=== PATIENT | male | born 1960 | race Hispanic/Latino ===

== ENCOUNTER 2017-11-18 09:30 | Day surgery (SDC) | payer BC ==
[2017-11-16 10:50] VITALS: BMI 31.3
[2017-11-18] MEDS ORDERED: Lidocaine 2% Inj (20ml) ONE (10:21)
[2017-11-18] MEDS ORDERED: Iodixanol 320 MG/ML 200 ML BOTTLE IV ONE (10:21)
[2017-11-18] MEDS ORDERED: Midazolam 2 MG/2 ML VIAL ONE ×2 (12:05→12:21)
[2017-11-18] MEDS ORDERED: Iohexol 350mgl/ml 50 ML ONE (12:31)
[2017-11-18] MEDS ORDERED: Sodium Chloride 0.9% 1,000 ML IV SCH (12:45)
[2017-11-18 13:14] VITALS: TEMP 98.1
[2017-11-18 14:53] VITALS: RESP 16; O2SAT 96
[2017-11-18 15:18] VITALS: BP 101/61; PULSE 85
--- NOTE | 2017-11-19 14:28 | CARDCATH ---
PROCEDURE DATE: 11/18/2017 CARDIAC CATHETERIZATION REPORT PROCEDURES: 1. Selective left and right coronary angiography. 2. Left ventriculography. 3. Right femoral arteriography. 4. Angio-Seal deployment. HISTORY: This is a 57-year-old man with a history of diabetes and hyperlipidemia as well as a family history of premature heart disease who has had recent exertional dyspnea and chest discomfort. Given his risk factors and class III symptoms, cardiac catheterization was advised. INDICATIONS: Exertional chest pain and dyspnea. FINDINGS: HEMODYNAMICS: The aortic pressure is 120/76, the left ventricular pressure of 120/16. CORONARY ANATOMY: 1. The left mainstem had a 50% distal tapering. 2. The left anterior descending artery had a 70% ostial stenosis followed by a tubular 80% stenosis in its lately proximal segment of the vessel. The early distal segment of the vessel had a long diffuse 50% stenosis as well and caliber of the vessels only moderate in size. The diagonal branch has had evidence of mild diffuse disease and they were fairly small caliber of the vessels. 3. Left circumflex artery gave rise to two obtuse marginal branches. The circumflex had a 50% ostial stenosis as well as diffuse 50% stenosis in its mid portion. The first obtuse marginal branch was occluded proximally. Collaterals were not clearly seen to the first obtuse marginal branch. Second obtuse marginal branch had mild irregularities. 4. The ramus branch had a 70% ostial stenosis. This vessel supplied a major portion of the lateral wall. 5. The right coronary artery was dominant. This had a long 60% stenosis in its proximal segment and there was a focal 70% stenosis in the mid portion. The posterolateral branch had mild diffuse disease and the PDA had mild diffuse disease as well. LEFT VENTRICULOGRAPHY: A hand injection was performed in the left ventricle revealing a normal wall motion with an ejection fraction of 60%. There was no aortic valve gradient noted on catheter pullback. Mitral regurgitation was not assessed. CONCLUSIONS: Significant left main as well as severe 3-vessel coronary artery disease with preserved LV function. RECOMMENDATIONS: Given his anatomy and presence of diabetes, revascularization with coronary artery bypass surgery has been advised. An outpatient evaluation will be planned. In the interim, aspirin, statin and beta-pascale therapy will be continued. Naseem Jin MD cc: Malcolm Chase MD [facility] # [id number]
== END 2017-11-18 16:10 | disposition home or self-care (01) ==
LOC: CATH 09:30
PROVIDERS: ATTEND Internal Medicine Cardiovascular Disease
DX: I25.119 Atherosclerotic heart disease of native coronary artery with unspecified angina pectoris (principal); E11.9 Type 2 diabetes mellitus without complications; E78.5 Hyperlipidemia, unspecified; J45.909 Unspecified asthma, uncomplicated; Z82.49 Family history of ischemic heart disease and other diseases of the circulatory system
CPT/HCPCS: 36415; 86850; 86900; 93458; 99152; 99153; C1760; C1769; C2629; J1644; J2250; J3010; J7030 ×2; Q9966; Q9967